=== PATIENT | male | born 1955 | race Caucasian/White ===

== ENCOUNTER 2022-05-20 12:29 | Emergency (ER) | payer MEDICARE ==
[2022-05-20] MEDS ORDERED: ENDOCET 5-3251 EACH PO ×2 (15:26→15:55)
== END 2022-05-20 16:00 | disposition home or self-care (01) ==
LOC: ER1 12:29
DX: S52.532A Colles' fracture of left radius, initial encounter for closed fracture (principal); W11.XXXA Fall on and from ladder, initial encounter; Y92.69 Other specified industrial and construction area as the place of occurrence of the external cause
CPT/HCPCS: 25605; 73100; 73110; 94760; 96374; 96375; 99152; 99283; J1170; J2405; J2704